=== PATIENT | female | born 1960 | race Two or more races ===

== ENCOUNTER 2022-11-30 05:40 | Day surgery (SDC) | payer OTHER ==
[~2022-11-30 05:40] MED LIST: LEVOTHYROXINE88 MC1 PO; PROMETRIUM200 MG PO; SYMBICORT 16010.2 GM IH; TRULICITY1.5 MG/0.5
[2022-11-30] MEDS ORDERED: MACROBID 100 M100 MG PO (09:21)
[2022-11-30] MEDS ORDERED: TRAM1TAB98 PO (09:23)
== END 2022-11-30 13:30 | disposition home or self-care (01) ==
LOC: CIR.AMB 05:40
PROVIDERS: ATTEND Obstetrics & Gynecology Gynecology
DX: N39.3 Stress incontinence (female) (male) (principal); Z20.822 Contact with and (suspected) exposure to COVID-19; N36.41 Hypermobility of urethra; N88.3 Incompetence of cervix uteri; E11.9 Type 2 diabetes mellitus without complications; E03.9 Hypothyroidism, unspecified
CPT/HCPCS: 57288; C1771